=== PATIENT | male | born 1995 | race Caucasian/White ===

== ENCOUNTER 2024-04-13 08:42 | Emergency (ER) | payer SELFPAY ==
[2024-04-13 08:43] VITALS: BP 161/98; PULSE 116; RESP 16; TEMP 36.4; O2SAT 96
--- NOTE | 2024-04-13 08:57 | ED_ITS ---
HPI - Wound/Laceration General: Chief Complaint: Wound/Laceration Stated Complaint: cut on finger, reddish Time Seen by Provider: 04/13/24 08:50 History of Present Illness: 29-year-old male presents emergency room complaining of left index finger pain and swelling he had a little cut on the finger at the cuticle about a week ago and now it is inflamed exquisitely tender to the touch. Associated symptoms: Denies chills or fever(s) Related Data Allergies Allergy/AdvReac Type Severity Reaction Status Date / Time No Known Allergies Allergy Verified 04/13/24 08:46 Review of Systems Const: Denies: fever(s) or chills Musc: Reports: other (Left index finger pain swelling) Physical Exam Extremity: OTHER: Examination left index finger there is a paronychia that has come to ahead on the proximal portion of the cuticle. See notes below. No epitrochlear lymph nodes mild localized swelling no induration Procedures Abscess I/D Site: hand (Index finger) Side (if applicable): left Technique: other (Inside to the bevel 18-gauge needle) Amount of fluid expressed (mL): 1 Packing used?: none Course Vital Signs: Vital signs: Vital Signs Temperature 97.6 F 04/13/24 08:43 Pulse Rate 116 H 04/13/24 08:43 Respiratory Rate 16 04/13/24 08:43 Blood Pressure 161/98 04/13/24 08:43 Pulse Oximetry 96 04/13/24 08:43 Oxygen Delivery Me thod Room Air 04/13/24 08:43 MDM - Wound/Laceration Medical Decision Making I&D of paronychia with release of a couple of mL of purulent fluid patient has immediate relief of symptoms. Discharge home discussed with the patient need to keep this draining for the next couple of days aggressively wash and apply topical antibiotic ointment and follow-up with primary care as needed No radiology studies performed this visit Discharge Plan Discharge Patient Disposition: Home Clinical Impression: Paronychia of finger of left hand Condition: Stable Discharge Orders: Discharge ED (Routine); Ordered 04/13/24 Ordered By: Dileep Bailey Patient Instructions: Paronychia (ED), Opioid Safety, Pain Management Activity Restrictions/Additional Instructions: Thank you for choosing [facility] for your healthcare needs today. It is very important that you follow up as instructed or that you return to the Emergency Department should you have concerns or if your condition changes or worsens in any way. You were seen in the emergency room for infection in your finger. On exam you are found to have a paronychia. This was incised and drained. Recommend aggressively washing the area several times a day over the next few days to allow it to continue to drain. You can apply topical antibiotic ointment. Once drained these generally do not require oral antibiotics. Coding Level of Care Code ED Precipitator Supervisor for Marcio Fraser
[2024-04-13 09:10] VITALS: BP 155/91; PULSE 71; O2SAT 98
== END 2024-04-13 09:11 | disposition home or self-care (01) ==
PROVIDERS: Emergency Provider Family Medicine
DX: L03.012 Cellulitis of left finger (principal)
CPT/HCPCS: 10060; 99282